=== PATIENT | female | born 1975 | race Caucasian/White ===

== ENCOUNTER 2016-08-26 14:48 | Emergency (ER) | payer SELFPAY ==
[~2016-08-26] VITALS: Ht 167.6 cm; Wt 63.5 kg
[2016-08-26] MEDS ORDERED: KETOROLAC TROMETHAMINE INJ 30 MG/ML VIAL IV ONE (17:30)
[2016-08-26] MEDS ORDERED: PROCHLORPERAZINE EDISYLATE 10 MG/2 ML VIAL IV ONE (17:30)
[2016-08-26] MEDS ORDERED: IV NS 0.9% 1,000 ML BAG IV ONE (17:30)
[2016-08-26] MEDS ORDERED: KETOROLAC TROMETHAMINE INJ 30 MG/ML VIAL ONE (17:42)
[2016-08-26] MEDS ORDERED: IV NS 0.9% 1,000 ML ONE (17:42)
[2016-08-26] MEDS ORDERED: PROCHLORPERAZINE EDISYLATE 10 MG/2 ML VIAL ONE (17:42)
[2016-08-26] MEDS ORDERED: IV SET PRIMARY 1 EA INFUS.SET MC ONE (17:42)
[2016-08-26 17:52] LABS: BASOPHILS # (AUTO) 0.1 /CMM (0.0-0.2); BASOPHILS % (AUTO) 0.8 % (0.0-2.0); DIFF TOTAL % 100 %; EOSINOPHILS # (AUTO) 0.1 /CMM (0.0-0.7); HEMATOCRIT 36 % (33-45); HEMOGLOBIN 11.8 g/dL (11.5-14.8); LYMPHOCYTES % (AUTO) 24.8 % (20.0-44.0); MEAN CORPUSCULAR HEMOGLOBIN 27 PG (26.0-33.0); MEAN CORPUSCULAR HGB CONC 33 g/dl (31.0-36.0); MEAN CORPUSCULAR VOLUME 82 fL (82-100); MONOCYTES # (AUTO) 0.5 /CMM (0.1-1.30); MONOCYTES % (AUTO) 5.8 % (2.0-12.0); NEUTROPHILS # (AUTO) 5.4 /CMM (1.8-8.9); NEUTROPHILS % (AUTO) 67.6 % (43.0-81.0); PLATELET COUNT (AUTO) 248 /CMM (150-450); RED BLOOD CELL COUNT(AUTO) 4.46 MIL/uL (4.0-5.2)
[2016-08-26 18:07] LABS: CALCIUM, SERUM 8.1 mg/dL (8.5-10.1); CREATININE 0.9 mg/dL (0.6-1.3); POTASSIUM 4.4 mmol/L (3.5-5.1)
[2016-08-26 18:13] LABS: ALBUMIN 3.4 g/dL (3.4-5.0); BILIRUBIN,TOTAL 0.1 mg/dL (0.2-1.0); TOTAL PROTEIN, SERUM 6.8 g/dL (6.4-8.2)
[2016-08-26 18:14] LABS: ADD UA MICROSCOPIC NO; KETONES,URINE NEGATIVE (NEGATIVE); LEUKOCYTE ESTERASE ,URINE NEGATIVE (NEGATIVE); PH,URINE 8.5 (5.0-8.0)
[2016-08-26 19:45] VITALS: BP 128/84
== END 2016-08-26 19:45 | disposition home or self-care (01) ==
LOC: ER 14:50
DX: G44.209 Tension-type headache, unspecified, not intractable (principal)
CPT/HCPCS: 36415; 80053; 81001; 85025; 96374; 96375; 99284; A4606; J0780; J1885; J7030; Z7610; 81000-TC

== ENCOUNTER 2021-09-20 19:15 | Emergency (ER) | payer MEDICAID ==
[~2021-09-20] VITALS: Ht 167.6 cm; Wt 68.0 kg
--- NOTE | 2021-09-20 19:31 | NUR ---
BIBS C/O CP X2DAYS RADIATING TO RIGHT ARM. ASPIRIN TAKEN ADON. ON AND OFF CHEST PAIN STARTED 30MINS AGO WITH PAIN SCALE OF 3/10. CONNECTED PT TO PIERCER SATURATING 98%. PATIENT ALERT, ORIENTED ABLE TO MAKE NEEDS KNOWN.
--- NOTE | 2021-09-20 19:50 | NUR ---
rfa #[id number] s/l patent and intact. pa at pt's bedside
--- NOTE | 2021-09-20 19:54 | NUR ---
instructional systems design consultant at pt's bedside
[2021-09-20 20:28] LABS: BASOPHILS % (AUTO) 0.6 % (0.0-2.0); HEMATOCRIT 36 % (33-45); HEMOGLOBIN 12.1 g/dL (11.5-14.8); LYMPHOCYTES # (AUTO) 1.9 K/uL (0.8-4.8); LYMPHOCYTES % (AUTO) 25.6 % (20.0-44.0); MEAN CORPUSCULAR HGB CONC 34 g/dl (31.0-36.0); MEAN CORPUSCULAR VOLUME 81 fL (82-100); MONOCYTES # (AUTO) 0.5 K/uL (0.1-1.30); MONOCYTES % (AUTO) 6.6 % (2.0-12.0); NEUTROPHILS # (AUTO) 4.9 K/uL (1.8-8.9); NEUTROPHILS % (AUTO) 65.2 % (43.0-81.0); PLATELET COUNT (AUTO) 273 K/uL (150-450); RED BLOOD CELL COUNT(AUTO) 4.48 MIL/uL (4.0-5.2); WHITE BLOOD COUNT (AUTO) 7.5 K/uL (4.3-11.0)
[2021-09-20 20:40] LABS: CALCIUM, SERUM 8.5 mg/dL (8.5-10.1); CARBON DIOXIDE 25 mmol/L (21-32); CHLORIDE 104 mmol/L (98-107); CREATININE 0.9 mg/dL (0.6-1.3); GLUCOSE 116 mg/dL (74-106); POTASSIUM 4.2 mmol/L (3.5-5.1); SODIUM SERUM 136 mmol/L (136-145); UREA NITROGEN, BLOOD 17 mg/dL (7-18)
--- NOTE | 2021-09-20 21:49 | NUR ---
Patient discharged to home in stable condition. Written and verbal after care instructions given. Patient verbalizes understanding of instruction. IV removed. Catheter intact and site benign. Pressure and 4x4 applied to site. No bleeding noted. PT ambulatory with a steady gait
[2021-09-21 00:56] VITALS: BP 140/86
== END 2021-09-20 21:49 | disposition home or self-care (01) ==
LOC: ER 19:18
DX: R07.89 Other chest pain (principal)
CPT/HCPCS: 36415; 71045-TC; 80048-TC; 84484-TC; 85025-TC

== ENCOUNTER 2022-04-04 12:35 | Emergency (ER) | payer MEDICAID ==
[~2022-04-04] VITALS: Ht 167.6 cm; Wt 70.8 kg
--- NOTE | 2022-04-04 13:15 | NUR ---
BIBS C/O "Abdominal Pain/constipation xcouple days". AMBULATORY, PLACED ON BED, AAOX4, IN PAIN 03/15 PS
--- NOTE | 2022-04-04 14:00 | NUR ---
AIRCRAFT ENGINEER AT BED SIDE
[2022-04-04 14:15] LABS: BASOPHILS % (AUTO) 0.5 % (0.0-2.0); EOSINOPHILS % (AUTO) 0.7 % (0.0-6.0); HEMATOCRIT 38 % (33-45); HEMOGLOBIN 12.7 g/dL (11.5-14.8); LYMPHOCYTES # (AUTO) 1.6 K/uL (0.8-4.8); LYMPHOCYTES % (AUTO) 25.5 % (20.0-44.0); MEAN CORPUSCULAR HGB CONC 33 g/dl (31.0-36.0); MEAN CORPUSCULAR VOLUME 81 fL (82-100); MONOCYTES # (AUTO) 0.4 K/uL (0.1-1.30); MONOCYTES % (AUTO) 6.9 % (2.0-12.0); NEUTROPHILS # (AUTO) 4.1 K/uL (1.8-8.9); NEUTROPHILS % (AUTO) 66.4 % (43.0-81.0); PLATELET COUNT (AUTO) 275 K/uL (150-450); RED BLOOD CELL COUNT(AUTO) 4.72 MIL/uL (4.0-5.2); WHITE BLOOD COUNT (AUTO) 6.2 K/uL (4.3-11.0)
[2022-04-04 14:28] LABS: CALCIUM, SERUM 8.8 mg/dL (8.5-10.1); CREATININE 0.8 mg/dL (0.6-1.3); POTASSIUM 4.1 mmol/L (3.5-5.1)
[2022-04-04 14:33] LABS: ALBUMIN 3.7 g/dL (3.4-5.0); BILIRUBIN,DIRECT 0.1 mg/dL (0.0-0.2); BILIRUBIN,TOTAL 0.4 mg/dL (0.2-1.0); TOTAL PROTEIN, SERUM 7.4 g/dL (6.4-8.2)
--- NOTE | 2022-04-04 14:41 | NUR ---
U/S TECH AT BED SIDE
[2022-04-04] MEDS ORDERED: IV NS 0.9% 500 ML BAG IV ONE (15:00)
--- NOTE | 2022-04-04 15:28 | NUR ---
PATIENT TAKEN TO CT VIA KATRIN
[2022-04-04] MEDS ORDERED: HYDROCODONE/APAP 5/325MG TABLET PO ONE (15:30)
[2022-04-04] MEDS ORDERED: HYDROCODONE/APAP 5/325MG TABLET ONE (15:31)
[2022-04-04] MEDS ORDERED: HYDR-4209 PO (16:11)
--- NOTE | 2022-04-04 16:30 | NUR ---
IV removed. Catheter intact and site benign. Pressure and 4x4 applied to site. No bleeding noted.Patient discharged to home in stable condition. Written and verbal after care instructions given. Patient verbalizes understanding of instruction.
[2022-04-04 16:50] VITALS: BP 135/75
== END 2022-04-04 16:30 | disposition home or self-care (01) ==
LOC: ER 12:36
DX: D25.9 Leiomyoma of uterus, unspecified (principal)
CPT/HCPCS: 99284; 74176; 76856; 85025; 80048; 83690; 80076; 84703; 36415; J7040

== ENCOUNTER 2023-04-02 20:53 | Emergency (ER) | payer BC, MEDICAID ==
[~2023-04-02] VITALS: Ht 165.1 cm; Wt 72.6 kg
[~2023-04-02 20:53] MED LIST: HYDR-4209 PO
[2023-04-02] MEDS ORDERED: predniSONE 20 MG TABLET PO ONE (21:30)
[2023-04-02] MEDS ORDERED: KETOROLAC TROMETHAMINE INJ 60 MG/2 ML VIAL IM ONE (21:30)
[2023-04-02] MEDS ORDERED: predniSONE 20 MG TABLET ONE (21:31)
[2023-04-02] MEDS ORDERED: KETOROLAC TROMETHAMINE INJ 30 MG/ML VIAL ONE (21:31)
[2023-04-02 22:08] VITALS: BP 137/80; TEMP 98.1; O2SAT 98
[2023-04-02] MEDS ORDERED: CYCL10TA9 PO (22:11)
[2023-04-02] MEDS ORDERED: PRED20TA PO (22:11)
[2023-04-02] MEDS ORDERED: IBUP-1955 PO (22:11)
== END 2023-04-02 22:14 | disposition home or self-care (01) ==
LOC: ER 20:56
DX: S83.8X1A Sprain of other specified parts of right knee, initial encounter (principal); S39.012A Strain of muscle, fascia and tendon of lower back, initial encounter; Z79.899 Other long term (current) drug therapy; W01.0XXA Fall on same level from slipping, tripping and stumbling without subsequent striking against object, initial encounter; Y93.89 Activity, other specified; Y92.89 Other specified places as the place of occurrence of the external cause; Y99.8 Other external cause status
CPT/HCPCS: 99284; 96372; 72110; 73564; J7512; J1885